=== PATIENT | female | born 1985 | race Two or more races ===

== ENCOUNTER 2023-04-03 13:10 | Emergency (ER) | payer OTHER ==
[~2023-04-03] VITALS: Ht 167.6 cm; Wt 64.9 kg
[2023-04-03 14:31] VITALS: BP 124/67; PULSE 87; RESP 17; TEMP 98; O2SAT 98
[2023-04-03] MEDS ORDERED: HYDROcodone-ACET 5/325MG TAB PO ONE (15:15)
[2023-04-03] MEDS ORDERED: ONDANSETRON ODT 4 MG TAB PO ONE (15:15)
[2023-04-03] MEDS ORDERED: ZOFR4T PO (15:19)
[2023-04-03] MEDS ORDERED: BUTACC PO (15:19)
== END 2023-04-03 17:08 | disposition home or self-care (01) ==
LOC: ER 13:10
DX: R51.9 Headache, unspecified (principal)
CPT/HCPCS: 70450; Q0162